=== PATIENT | male | born 1985 | race Two or more races ===

== ENCOUNTER 2019-11-21 07:41 | Emergency (ER) | payer SELFPAY ==
--- NOTE | 2019-11-21 08:11 | EDM.PDOC ---
ED HPI GENERAL MEDICAL PROBLEM - General Chief Complaint: General Stated Complaint: LT HAND RING FINGER INJURY Time Seen by Provider: 11/21/19 08:10 Source of Information: Reports: Patient, RN Notes Reviewed - History of Present Illness INITIAL COMMENTS - FREE TEXT/NARRATIVE: 34 yr old male comes in with L ring finger injury. Happened yesterday tubing. Has had severe pain since the injury. Unable to move finger. Continued pain L ring finger only. Left Finger-Ring Pain Score (Numeric/FACES): 8 - Related Data Allergies Allergy/AdvReac Type Severity Reaction Status Date / Time No Known Allergies Allergy Verified 11/21/19 07:58 Home Meds: Home Meds clonazePAM [Klonopin] 1 mg PO QID 11/21/19 [History] Past Medical History - Past Health History Medical/Surgical History: Denies Medical/Surgical History Psychiatric History: Reports: Anxiety Social & Family History - Tobacco Use Smoking Status *Q: Never Smoker - Alcohol Use Days Per Week of Alcohol Use: 3 Number of Drinks Per Day: 3 Total Drinks Per Week: 9 - Recreational Drug Use Recreational Drug Use: No Review of Systems - Review of Systems Review Of Systems: See Below Constitutional: Reports: No Symptoms Mouth/Throat: Reports: No Symptoms Respiratory: Reports: No Symptoms Cardiovascular: Reports: No Symptoms GI/Abdominal: Reports: No Symptoms Musculoskeletal: Reports: Joint Pain Skin: Reports: No Symptoms Neurological: Denies: Numbness, Tingling ED EXAM, GENERAL - Physical Exam Exam: See Below General Appearance: Alert, Mild Distress Head: Atraumatic Neck: Supple Respiratory/Chest: No Respiratory Distress, Lungs Clear GI/Abdominal: Soft, Non-Tender Extremities: Other (deformity PIP of L ring finger suggestive of dislocation, hand otherwise nontender) Neurological: Other (distal sensation intact) Course - Vital Signs Last Recorded V/S: Last Vital Signs Temp 98.2 F 11/21/19 07:56 Pulse 75 11/21/19 07:56 Resp 16 11/21/19 07:56 BP 100/67 11/21/19 07:56 Pulse Ox 97 11/21/19 07:56 - Orders/Labs/Meds Meds: Medications Discontinued Medications Generic Name Dose Route Start Last Admin Trade Name Freq PRN Reason Stop Dose Admin Hydrocodone Bitart/Acetaminophen 1 tab 11/21/19 08:52 11/21/19 09:00 [place] 325-5 Mg PO 11/21/19 08:53 1 tab ONETIME ONE Administration Ketorolac Tromethamine 30 mg 11/21/19 09:00 11/21/19 09:00 Toradol IVPUSH 30 mg ONETIME JACOB Administration - Re-Assessments/Exams Free Text/Narrative Re-Assessment/Exam: 11/30/19 09:54 X ray showed dislocation of PIP jt L ring finger. Pt given torodol IM and hydrocodone PO, dislocation reduced by myself longitudinal traction and volar pressure. Post reduction Xrays show no fx, good alignment. Discharge instr. as documented. Departure - Departure Time of Disposition: 10:07 Disposition: Home, Self-Care 01 Condition: Fair Clinical Impression: Dislocation, finger closed Qualifiers: Encounter type: initial encounter Qualified Code(s): S63.259A - Unspecified dislocation of unspecified finger, initial encounter - Discharge Information Instructions: Finger or Thumb Dislocation, [id number] Referrals: PCP,None [Primary Care Provider] - Forms: ED Department Discharge Additional Instructions: Aluminum finger splint for about 2 weeks or until after discomfort has completely resolved. Tylenol or ibuprofen as needed. Follow up with your regular medical provider as needed. Sepsis Event Note (ED) - Evaluation Sepsis Screening Result: No Definite Risk
[2019-11-21] MEDS ORDERED: Acetaminophen/HYDROcodone 325-5 MG Tab PO ONE (08:52)
[2019-11-21] MEDS ORDERED: Ketorolac 30 MG/ML SDV IVPUSH SCH (09:00)
--- NOTE | 2019-11-21 10:02 | CR ---
Left fourth finger: 3 views centered to the left fourth finger were obtained. Comparison: No previous finger study. Dislocated PIP joint is noted. Middle phalanx and distal phalanx is displaced anteriorly to the proximal phalanx. Soft tissue swelling is noted. Several small calcifications are seen along the PIP joint suspicious for small chip fractures. No additional abnormality is appreciated. Impression: 1. Dislocated PIP joint. 2. Possible small chip fractures off the PIP joint. Diagnostic code #3 This report was dictated in MDT
--- NOTE | 2019-11-21 12:16 | CR ---
Left fourth finger: 4 views of the left fourth finger were obtained. Comparison: Prior fourth finger study performed earlier on the same day (8:09 AM). Previously noted dislocation within the PIP joint has been reduced. No discrete fracture is appreciated on this exam. Soft tissue swelling is noted. Impression: 1. Reduction of previous dislocation. 2. No discrete fracture is seen although previous calcifications may be hidden on the lateral view due to overlapping fingers. 3. Soft tissue swelling. Diagnostic code #2 This report was dictated in MDT
== END 2019-11-21 10:15 | disposition home or self-care (01) ==
LOC: JD.ED 07:41
DX: S63.285A Dislocation of proximal interphalangeal joint of left ring finger, initial encounter (principal); F41.9 Anxiety disorder, unspecified; Z79.899 Other long term (current) drug therapy; X58.XXXA Exposure to other specified factors, initial encounter; Y93.16 Activity, rowing, canoeing, kayaking, rafting and tubing; Y92.828 Other wilderness area as the place of occurrence of the external cause
CPT/HCPCS: 73140-26-F3; 73140-F3; 96374; 99283-25; A9270-GY; J1885

== ENCOUNTER 2020-02-28 14:55 | Emergency (ER) | payer OTHER ==
--- NOTE | 2020-02-28 16:15 | EDM.PDOC ---
ED HPI GENERAL MEDICAL PROBLEM - General Chief Complaint: Respiratory Problem Stated Complaint: DAVID DOS SANTOS HAS BEEN EXPOSED Time Seen by Provider: 02/28/20 15:07 Source of Information: Reports: Patient, RN Notes Reviewed History Limitations: Reports: No Limitations - History of Present Illness INITIAL COMMENTS - FREE TEXT/NARRATIVE: Patient is a 34-year-old male presenting to the emergency department with complaints of cough, chest tightness, fever, chills, headaches, and body aches. Symptoms began approximately 5 days ago. He has had known exposures to Covid as his brothers who he lives with are positive. He denies any nausea, vomiting, or diarrhea. He has no chronic underlying medical conditions. - Related Data Allergies Allergy/AdvReac Type Severity Reaction Status Date / Time No Known Allergies Allergy Verified 02/28/20 15:39 Home Meds: Home Meds clonazePAM [Klonopin] 1 mg PO QID PRN 11/21/19 [History] Past Medical History - Past Health History Medical/Surgical History: Denies Medical/Surgical History Psychiatric History: Reports: Anxiety Social & Family History - Tobacco Use Tobacco Use Status *Q: Never Tobacco User - Caffeine Use Caffeine Use: Reports: Soda - Recreational Drug Use Recreational Drug Use: No ED ROS GENERAL - Review of Systems Review Of Systems: See Below Constitutional: Reports: Fever, Chills, Fatigue, Decreased Appetite HEENT: Reports: No Symptoms Respiratory: Reports: Shortness of Breath, Cough Cardiovascular: Reports: No Symptoms Endocrine: Reports: No Symptoms GI/Abdominal: Reports: No Symptoms : Reports: No Symptoms Musculoskeletal: Reports: Other (Generalized body aches) Neurological: Reports: Dizziness, Headache Psychiatric: Reports: No Symptoms Hematologic/Lymphatic: Reports: No Symptoms Immunologic: Reports: No Symptoms ED EXAM, GENERAL - Physical Exam Exam: See Below Exam Limited By: No Limitations General Appearance: Alert, WD/WN, No Apparent Distress Respiratory/Chest: No Respiratory Distress, Lungs Clear, Normal Breath Sounds, No Accessory Muscle Use, Chest Non-Tender Cardiovascular: Normal Peripheral Pulses, Regular Rate, Rhythm, No Edema, No Gallop, No JVD, No Murmur, No Rub GI/Abdominal: Normal Bowel Sounds, Soft, Non-Tender, No Organomegaly, No Distention, No Abnormal Bruit, No Mass Neurological: Alert, Oriented, CN II-XII Intact, Normal Cognition, Normal Gait, Normal Reflexes, No Motor/Sensory Deficits Psychiatric: Normal Affect, Normal Mood Skin Exam: Warm, Dry, Intact, Normal Color, No Rash Course - Vital Signs Last Recorded V/S: Last Vital Signs Temp 98.3 F 02/28/20 15:40 Pulse 81 02/28/20 15:40 Resp 20 02/28/20 15:40 BP 121/84 02/28/20 15:40 Pulse Ox 99 02/28/20 15:40 - Orders/Labs/Meds Orders: Active Orders 24 hr Category Date Time Status CORONAVIRUS COVID-19 PCR [facility] Stat Lab 02/28/20 16:08 Ordered - Re-Assessments/Exams Free Text/Narrative Re-Assessment/Exam: [facility] department with complaints of Covid signs and symptoms which began on Tuesday this last which is about 5 days ago. He has household exposure to Covid as his brother so he lives with are currently Covid positive. Vital signs in triage were stable. Oxygen saturation has been 99% on room air throughout his stay in the ER. His exam is benign. Lung sounds are clear. Discussed with patient that based on his symptoms and is very close contact with known Covid positive individuals, he should operate on the assumption that he is Covid positive. We will complete a [facility] lab Covid test today. I will provide him with a note for work. Return precautions discussed. Discharge instructions as documented. Departure - Departure Time of Disposition: 16:13 Disposition: Home, Self-Care 01 Condition: Good Clinical Impression: Viral illness - Discharge Information *PRESCRIPTION DRUG MONITORING PROGRAM REVIEWED*: No *COPY OF PRESCRIPTION DRUG MONITORING REPORT IN PATIENT HOWIE: No Instructions: Viral Illness, Adult Referrals: Chi Vyas Jr, MD [Primary Care Provider] - Forms: ED Department Discharge, ED Return to Work/School Form Additional Instructions: You were seen in the emergency department today for symptoms of Covid. Your vital signs were normal in the ER. Oxygen saturation was 99% on room air which is excellent. Your exam was. As we discussed, due to your close contact with known Covid positive individuals, you should operate on the assumption that you are Covid positive. A [facility] Covid test has been conducted today. You will be notified of results in the next 24 to 72 hours. You should isolate until released by the [facility]. Note has been provided off from work. If you feel that you are experiencing worsening symptoms that require medical evaluation, please do not hesitate to return to the emergency department. Sepsis Event Note (ED) - Evaluation Sepsis Screening Result: No Definite Risk - Focused Exam Vital Signs: Vital Signs Temp Pulse Resp BP Pulse Ox 02/28/20 15:40 98.3 F 81 20 121/84 99 - My Orders Last 24 Hours: My Active Orders 02/28/20 16:08 CORONAVIRUS COVID-19 PCR [facility] Stat - Assessment/Plan Last 24 Hours: My Active Orders 02/28/20 16:08 CORONAVIRUS COVID-19 PCR [facility] Stat
== END 2020-02-28 16:33 | disposition home or self-care (01) ==
LOC: JD.ED 14:55
DX: U07.1 COVID-19 (principal)
CPT/HCPCS: 99282; 99283; U0002

== ENCOUNTER 2022-04-08 16:11 | Emergency (ER) | payer SELFPAY ==
[2022-04-08] MEDS ORDERED: cefTRIAXone 2 GM in Sodium Chloride 0.9% 100 ML IV ONE (18:46)
[2022-04-08] MEDS ORDERED: HYDROmorphone 0.5 MG/0.5 ML Syringe IM ONE (19:01)
== END 2022-04-08 20:58 | disposition home or self-care (01) ==
LOC: JD.ED 16:11
DX: S80.212A Abrasion, left knee, initial encounter (principal); W22.09XA Striking against other stationary object, initial encounter
CPT/HCPCS: 73562; 96372; 99283; J1170

== ENCOUNTER 2023-12-15 08:13 | Emergency (ER) | payer MEDICAID ==
[2023-12-15] MEDS: Acetaminophen 325 MG Tab PO ONE (09:24)
== END 2023-12-15 09:50 | disposition home or self-care (01) ==
LOC: JD.ED 08:13
DX: S20.212A Contusion of left front wall of thorax, initial encounter (principal); W22.8XXA Striking against or struck by other objects, initial encounter
CPT/HCPCS: 71101; 99283; A9270; 99282